=== PATIENT | female | born 1980 | race Caucasian/White ===

== ENCOUNTER 2017-01-30 09:33 | Inpatient (IN) | payer BC ==
--- NOTE | 2017-01-29 19:15 | HP ---
Date/Time of Note Date/Time of Note DATE: 01/29/17 TIME: 19:07 OB - History Hx of Present Free Text/Dictation 36 y.o. A2 with an LMP of 05/02/16 and an EDC of 02/06/17 and an IUP at 39 weeks on the day of surgery, is here for a repeat . Chief Complaint: For repeat . Last Menstrual Period: May 02, 2016 Estimated Due Date: Feb 06, 2017 : 5 Para: 2 Spontaneous : 2 Care: Good Care Ultrasounds: Normal mid trimester US Obstetrical Complications: Other (Polyhydramnios) Medical Complications: Gastrointestinal (Acid reflux. Sciatica.) Past Family/Social History * Past Medical, Surgical, Family and Obstetric Histories reviewed from chart. Blood Type: O+ Rubella: immune RPR/VDRL: Negative GBS Status: Negative HBsAG: Negative OB Admission Exam Physical Exam HEENT: WNL Heart: Rhythm Normal Lungs: Clear Abdomen: WNL Extremities: Normal Reflexes: Normal Cervical Dilatation: None Effacement: 0% OB Assessment/Plan Reason for admission: section (Repeat) Plan: Section TAM VARGAS MD Jan 29, 2017 19:15
[~2017-01-30] VITALS: Ht 154.9 cm; Wt 70.9 kg
[2017-01-30 09:54] VITALS: Ht 154.9 cm; Wt 70.9 kg
[2017-01-30 09:55] VITALS: BP 103/64; PULSE 96; RESP 18
[2017-01-30] MEDS ORDERED: PRENAT PO (09:58)
[2017-01-30] MEDS ORDERED: DOCO100C PO (09:58)
[2017-01-30] MEDS ORDERED: FERR325T5 PO (09:58)
[2017-01-30] MEDS ORDERED: METHYLERGONOVINE 0.2 MG INJ IM PRN ×2 (10:00→14:00)
[2017-01-30] MEDS ORDERED: OXYTOCIN 30 UNITS/LR 500 ML IV SCH (10:00)
[2017-01-30] MEDS ORDERED: OXYTOCIN 30 UNITS/LR 500 ML IV PRN ×2 (10:00→14:00)
[2017-01-30] MEDS ORDERED: MISOPROSTOL 200 MCG TAB PR PRN ×2 (10:00→14:00)
[2017-01-30] MEDS ORDERED: CEFAZOLIN 2 GM/50 ML (PMX) 50 ML IV SCH (10:00)
[2017-01-30] MEDS ORDERED: CARBOPROST 250 MCG INJ IM PRN ×2 (10:00→14:00)
[2017-01-30 10:23] LABS: ADD SCAN DIFF NO
[2017-01-30 10:27] LABS: BASOPHILS % 0.3 % (0.0-2.0); EOSINOPHILS % 0.7 % (0.0-7.0); HEMATOCRIT 34.5 % (37.0-47.0); HEMOGLOBIN 11.6 g/dl (12.0-16.0); LYMPHOCYTES # 1.3 10^3/ul (0.8-2.9); LYMPHOCYTES % 21.4 % (15.0-51.0); MEAN CORPUSCULAR HEMOGLOBIN 28.3 pg (29.0-33.0); MEAN CORPUSCULAR HGB CONC 33.6 g/dl (32.0-37.0); MEAN CORPUSCULAR VOLUME 84.1 fl (82.0-101.0); MEAN PLATELET VOLUME 9.3 fl (7.4-10.4); MONOCYTE # 0.5 10^3/ul (0.3-0.9); MONOCYTES % 9.1 % (0.0-11.0); NEUTROPHILS % 67.2 % (39.0-77.0); PLATELET COUNT 171 10^3/UL (140-415); RED CELL DISTRIBUTION WIDTH 15.5 % (11.5-14.5); WHITE BLOOD COUNT 5.9 10^3/ul (4.8-10.8)
[2017-01-30 10:43] LABS: INR 0.89; PT RATIO 0.9
[2017-01-30 10:44] LABS: PARTIAL THROMBOPLASTIN TIME 25.5 Sec (25.0-35.0)
[2017-01-30] MEDS ORDERED: LACTATED RINGER'S 1,000 ML IV SCH (11:15)
[2017-01-30] MEDS ORDERED: CITRIC ACID/NA CITRATE 30 ML CUP ONE (11:41)
[2017-01-30] MEDS ORDERED: ONDANSETRON 4 MG INJ ONE (11:42)
[2017-01-30] MEDS ORDERED: FENTAnyl 50 MCG/ML VIAL ONE (11:43)
[2017-01-30] MEDS ORDERED: PHENYLephrine (100 MCG/ML) 5ML SYG ONE (11:44)
[2017-01-30] MEDS ORDERED: OXYTOCIN 10 UNIT INJ ONE (11:44)
[2017-01-30] MEDS ORDERED: METOCLOPRAMIDE 10 MG INJ ONE (11:44)
[2017-01-30] MEDS ORDERED: DIPHENHYDRAMINE 50 MG INJ ONE ×2 (11:44→13:16)
[2017-01-30] MEDS ORDERED: morphine SULFATE/PF (10 MG/10 ML) INJ ONE (11:44)
[2017-01-30] MEDS ORDERED: DEXAMETHASONE 4 MG/ML 1 ML INJ ONE (12:18)
[2017-01-30] MEDS ORDERED: MIDAZOLAM 1 MG/ML 2 ML INJ ONE (12:44)
[2017-01-30] MEDS ORDERED: hydrALAzine 20 MG INJ IV PRN (13:00)
[2017-01-30] MEDS ORDERED: TRIMETHOBENZAMIDE 100 MG/ML VIAL IM PRN (13:00)
[2017-01-30] MEDS ORDERED: MIDAZOLAM 1 MG/ML 2 ML INJ IV PRN (13:00)
[2017-01-30] MEDS ORDERED: MEPERIDINE 25 MG INJ IV PRN (13:00)
[2017-01-30] MEDS ORDERED: EPHEDrine SULFATE 50 MG/5 ML SYG IV PRN (13:00)
[2017-01-30] MEDS ORDERED: HYDROmorphONE (0.2 MG/ML) 10ML SYG IV PRN ×3 (13:00)
[2017-01-30] MEDS ORDERED: OXYCODONE/ACETAMINOPHEN (5/325) TAB PO PRN ×3 (13:00→14:00)
[2017-01-30] MEDS ORDERED: FENTAnyl 50 MCG/ML VIAL IV PRN ×3 (13:00)
[2017-01-30] MEDS ORDERED: ONDANSETRON 4 MG INJ IV PRN ×2 (13:00)
[2017-01-30] MEDS ORDERED: NALOXONE (0.4 MG/ML) INJ IV PRN (13:00)
[2017-01-30] MEDS ORDERED: LABETALOL HCL 20MG INJ IV PRN (13:00)
[2017-01-30] MEDS ORDERED: HYDROmorphONE 1 MG/ML SYG IV PRN ×2 (13:00)
[2017-01-30] MEDS ORDERED: ZOLPIDEM 5 MG TAB PO PRN (13:00)
[2017-01-30] MEDS ORDERED: DIPHENHYDRAMINE 50 MG INJ IV PRN ×2 (13:00)
[2017-01-30] MEDS ORDERED: PROCHLORPERAZINE 10 MG INJ IV PRN (13:00)
[2017-01-30] MEDS ORDERED: LANOLIN 7 GM TUBE TOP PRN (14:00)
[2017-01-30] MEDS ORDERED: IBUPROFEN 800 MG TAB PO SCH (14:00)
[2017-01-30] MEDS ORDERED: OXYTOCIN 30 UNITS/LR 500 ML IV ONE (14:03)
--- NOTE | 2017-01-30 14:08 | OPR ---
Operative Report Planned Procedure Procedure date Jan 30, 2017 Procedure(s) Repeat section. Performed by: TAM VARGAS MD Assisting provider: ROSAMARIA POTTER MD Anesthesiologist: Kenneth Jovel M.D. Pre-procedure diagnosis IUP at 39 weeks. Previous x 2, for a repeat. Anesthesia Type: spinal Procedure Description Under satisfactory spinal anesthesia, the patient was prepped and draped and placed in a supine position, tilted to the left. Pfannenstiel incision was made , carried through the subcutaneous tissue all in an elliptical manner removing a 2 cm wide strip of tissue and fat. Bleeders brought under control with electrocautery. Fascia incised to the length of the incision. Rectus muscles from the fascia, divided midline. Peritoneum exposed, entered through a transverse incision. Exploration of abdomen revealed gravid uterus. Bladder flap was developed. Transverse incision was made in the lower segment of the uterus. Amniotic sac ruptured. Clear amniotic fluid noted. Nasal oropharyngeal suction was performed. The baby was brought to the team for immediate attention. The placenta was delivered manually intact. Uterine cavity was cleaned with wet sponge and drainage established. Uterus closed in 2 layers using #1chromic in continuous fashion. Peritoneal cavity irrigated with warm saline. Sponge, needle and instrument count reported to be correct. Abdominal peritoneum closed with 2-0 chromic continuously. Rectus muscle approximated with the same suture. Fascia closed with 0- Vicryl, and the subcutaneous layer was closed with 2-0 chromic and the skin was closed with 3-0 monocryl in a subcuticular stitch with excellent tissue approximation and hemostasis. Estimated blood loss 600mL. Urine bag contained clear urine. Pt tolerated the procedure very well and was brought to the recovery room in excellent condition. Post-Procedure Post-procedure diagnosis Repeat , s/p delivery of a viable baby boy weighing 3455 grams, or 7# 10 oz, with Apgars of 9/9. Findings: Live Baby boy with Apgars of 9/9, 3455 grams, or 7# 10 oz, 20" long and with a double nuchal cord. Specimen removed: Yes Specimen description Placenta.Does not need to go to pathology. Complications: None Pt Condition post procedure: stable Disposition: PACU Physician Certification I, the undersigned physician, hereby certify that I have discussed the procedure described in this consent form with this patient (or the patient's legal lead customer service representative), including: * The risk and benefits of the procedure; * Any adverse reactions that may reasonably be expected to occur; * Any alternative efficacious methods of treatment which may be medically viable ; * The potential problems that may occur during recuperation; * Potential for blood transfusion and associated risks/benefits; and * Any research or economic interest I may have regarding this treatment. I further certify that the patient/legally responsible person was encouraged to ask question and that all questions were answered. TAM VARGAS MD Jan 30, 2017 14:07
[2017-01-30 16:30] VITALS: BP 100/58; PULSE 77; RESP 19
[2017-01-30] MEDS: LACTATED RINGER'S 1,000 ML IV SCH (17:46)
[2017-01-30 20:30] VITALS: BP 96/52; PULSE 72; RESP 18
[2017-01-30] MEDS: KETOROLAC 30 MG INJ IV PRN (22:07)
[2017-01-31] VITALS (7 sets, daily range): BP systolic 89–114; BP diastolic 48–59; PULSE 75–93; RESP 16–18
[2017-01-31] MEDS: LACTATED RINGER'S 1,000 ML IV SCH ×3 (01:47→13:48)
[2017-01-31] MEDS: KETOROLAC 30 MG INJ IV PRN ×2 (05:32→12:11)
[2017-01-31 11:02] LABS: ADD SCAN DIFF NO
[2017-01-31 11:08] LABS: BASOPHILS % 0.1 % (0.0-2.0); EOSINOPHILS % 0.2 % (0.0-7.0); HEMATOCRIT 25.4 % (37.0-47.0); HEMOGLOBIN 8.3 g/dl (12.0-16.0); LYMPHOCYTES # 1.4 10^3/ul (0.8-2.9); MEAN CORPUSCULAR HEMOGLOBIN 28.4 pg (29.0-33.0); MEAN CORPUSCULAR HGB CONC 32.7 g/dl (32.0-37.0); MEAN PLATELET VOLUME 9.6 fl (7.4-10.4); MONOCYTE # 0.8 10^3/ul (0.3-0.9); MONOCYTES % 9.3 % (0.0-11.0); NEUTROPHIL # 5.9 10^3/ul (1.6-7.5); NEUTROPHILS % 72.5 % (39.0-77.0); PLATELET COUNT 137 10^3/UL (140-415); RED BLOOD COUNT 2.92 10^6/ul (4.20-5.40); RED CELL DISTRIBUTION WIDTH 15.5 % (11.5-14.5); WHITE BLOOD COUNT 8.2 10^3/ul (4.8-10.8)
[2017-01-31] MEDS: IBUPROFEN 800 MG TAB PO SCH ×2 (14:00→21:45)
[2017-01-31] MEDS: OXYCODONE/ACETAMINOPHEN (5/325) TAB PO PRN ×2 (17:35→22:30)
--- NOTE | 2017-01-31 23:24 | QN ---
Documentation Comment POD #1 s/p repeat C/S. Pt is a little depressed with tears intermittently when she is talking. Say she misses her other kids. +flatus. No N/V. is starting off slow but the baby is getting better at it. Pt didn't sleep well last night as the baby was very fussy but after the baby passed stool the baby was much calmer. T=98.3 BP 92/55. Fundus firm. Dressing C/D/I. Lochia minimal. Ext NT 1+ edema. WBC 8.2 Hgb 8.3 Plts 137. P: Continue care. Advance diet to regular. Encourage ambulation and a shower. TAM VARGAS MD Jan 31, 2017 23:24
[2017-02-01 03:30] VITALS: BP 87/49; PULSE 80; RESP 18
[2017-02-01] MEDS: IBUPROFEN 800 MG TAB PO SCH ×3 (06:00→22:08)
[2017-02-01] MEDS: OXYCODONE/ACETAMINOPHEN (5/325) TAB PO PRN ×4 (08:27→23:56)
[2017-02-01 08:56] VITALS: BP 99/58; PULSE 76; RESP 18
[2017-02-01 15:50] VITALS: BP 81/57; PULSE 81; RESP 18
--- NOTE | 2017-02-01 17:35 | QN ---
Documentation Comment Progress Note POD #2 Pt feeling much better today as is less weepy. is going better. No BM and is very worried about getting constipated. T=98.1 BP 81/57 Incision is clean, dry and intact. Lochia minimal. Ext NT, no edema. P; Plan D/C tomorrow. Stool softeners today. TAM VARGAS MD Feb 01, 2017 17:35
[2017-02-01] MEDS ORDERED: MAGNESIUM HYDROXIDE 30ML CUP PO ONE (18:00)
[2017-02-01 19:55] VITALS: BP 105/56; PULSE 81; RESP 18
[2017-02-01] MEDS: DOCUSATE SODIUM 100 MG CAP PO SCH (22:12)
[2017-02-01 23:30] VITALS: BP 99/54; PULSE 75; RESP 18
[2017-02-02 05:01] VITALS: BP 105/54; PULSE 70; RESP 18
[2017-02-02] MEDS: IBUPROFEN 800 MG TAB PO SCH ×2 (05:34→14:12)
[2017-02-02] MEDS ORDERED: DIPHTH/TET/ACEL PERTUSS (ADULT) 0.5 ML VIAL IM* ONE (09:00)
[2017-02-02 09:15] VITALS: BP 99/58; PULSE 76; RESP 18
[2017-02-02] MEDS: DOCUSATE SODIUM 100 MG CAP PO SCH (09:17)
--- NOTE | 2017-02-02 14:28 | PD.PPDC ---
[employer] OF [employer] Discharge Instruction Condition Patient Condition: Good Diet Diet: Resume Regular Diet Activity/Restrictions Activity: Bedrest May be up to bathroom May be up for meals May Shower Restrictions: No Exercising No Lifting No Driving Minimize Walking Minimize Stair-climbing No Sexual Activity Nothing in the Vagina No [place] No Tampons, douche Wound/Drain Care Instructions Wound/Drain Care Instructions: Keep clean and dry Follow-up Follow-up with Physician: 2, Week/Weeks Return to clinic for [employer] Instructions: Fever greater than 101 Chills Worsening abdominal pain Excessive Vaginal Bleeding OB Instructions: Breast Tenderness Depression Surgical Instructions: Incisional Drainage Incisional Redness TAM VARGAS MD Feb 02, 2017 14:28
[2017-02-02] MEDS ORDERED: IBUP800T25 PO (14:29)
[2017-02-02] MEDS ORDERED: Oxycodone/Acetamin (5/325) PO (14:29)
--- NOTE | 2017-02-02 14:32 | DS ---
Date/Time of Note Date/Time of Note DATE: 02/02/17 TIME: 14:30 Obstetrical Discharge Record Final Diagnosis Final Diagnosis: Term delivered Section Section: Repeat Complications Augmentation: No Induction: No Condition on Discharge Physical Assessment Last Vitals: Afebrile VSS Voiding: Yes Bowel Movement: No Breast: Filling Fundus: Firm Abdomen and Incision: Clean, dry and intact with steri-strips. Calf Tenderness: No Patient Condition: Good TAM VARGAS MD Feb 02, 2017 14:31
[2017-02-02 15:50] VITALS: BP 90/52; PULSE 76; RESP 16
== END 2017-02-02 17:28 | disposition home or self-care (01) | DRG 765 ==
LOC: L-D 09:33 → PP1 16:20
PROVIDERS: ADMIT Obstetrics & Gynecology; ATTEND Obstetrics & Gynecology
PROC: 10D00Z1 Extraction of Products of Conception, Low, Open Approach (ICD-10-PCS; principal; 2017-01-30 11:30)
DX: O34.219 Maternal care for unspecified type scar from previous cesarean delivery (principal); O40.3XX0 Polyhydramnios, third trimester, not applicable or unspecified; O69.81X0 Labor and delivery complicated by cord around neck, without compression, not applicable or unspecified; Z3A.39 39 weeks gestation of pregnancy; Z37.0 Single live birth
CPT/HCPCS: 85025; 85610; 85730; 86592; 86850; 86900; 86901; 87340; 90715; 94760; 99464; J0690; J1100; J1170; J1200; J1885; J2250; J2274; J2370; J2405; J2590; J2765; J3010; J7120